=== PATIENT | female | born 1965 | race Caucasian/White ===

== ENCOUNTER 2016-10-25 11:55 | Day surgery (SDC) | payer MEDICAID ==
[2016-10-25] MEDS ORDERED: PROPOFOL 10 MG/ML VIAL IV ONE (14:00)
[2016-10-25] MEDS ORDERED: LIDOCAINE 2% MDV (20MG/ML) 20ML VIAL IV ONE (14:00)
[2016-10-25] MEDS ORDERED: MIDAZOLAM HCL 2MG/2ML VIAL IV ONE (14:00)
--- NOTE | 2016-10-27 12:06 | Operative Note ---
DATE OF SURGERY: 10/25/2016 OPERATION: COLONOSCOPY with cold snare and cold forceps polypectomies. PREOPERATIVE DIAGNOSIS: Screening, average risk, initial screen. POSTOPERATIVE DIAGNOSES: 1. Five sigmoid polyps, status post cold forceps removal. 2. One sigmoid polyp, status post cold snare removal. 3. Transverse polyp, status post cold forceps removal. SPECIMENS: Sigmoid and transverse colon. ESTIMATED BLOOD LOSS: Minimal. PREPARATION QUALITY: Good to excellent. COMPLICATIONS: None apparent. PROCEDURE: After informed consent was obtained from the patient, she was placed in the left lateral decubitus position in the endoscopy suite, sedated and monitored by the department of anesthesia. Once sedated, a digital rectal exam was unremarkable. A well-lubricated [id number] colonoscope was inserted into the rectum and advanced to the cecum. The ileocecal valve, appendiceal orifice, cecal cap, and ascending colon were unremarkable. The transverse colon revealed a diminutive polyp removed with a cold forceps. The remainder of the transverse colon as well as the descending colon were unremarkable. In the sigmoid colon, there were 6 polyps, 3 diminutive, each removed with a cold forceps. Another was approximately 4-5 mm removed with a cold snare. Minimal bleeding was noted at all the sites. The polyps were retrieved without incident. No other abnormalities were noted in the sigmoid colon or the rectum. J-turn views of the anorectum were unremarkable. The endoscope was straightened, the rectal ampulla deflated, and the endoscope was removed. RECOMMENDATIONS: The patient should resume her medications and diet. She will require repeat exam in 3 to 5 to 10 years pending tissue histology. As always, thank you for allowing me to participate in the healthcare of your patients. CC: WAI Ramirez
== END 2016-10-25 14:25 | disposition home or self-care (01) ==
LOC: HOP 11:55
PROVIDERS: ATTEND Internal Medicine Gastroenterology
DX: Z12.11 Encounter for screening for malignant neoplasm of colon (principal); K63.5 Polyp of colon; M06.9 Rheumatoid arthritis, unspecified

== ENCOUNTER 2017-02-03 20:29 | Inpatient (IN) | payer MEDICAID ==
[2017-02-03] MEDS ORDERED: HYOSCYAMINE SULFATE ODT 0.125 MG TAB.SUBL SL ONE (20:47)
[2017-02-03] MEDS ORDERED: ONDANSETRON HCL IV 4 MG/2 ML VIAL IVP ONE ×2 (20:47→22:06)
--- NOTE | 2017-02-03 20:53 | Emergency Department Record ---
History of Present Illness - General Chief Complaint: Fall Injury Stated Complaint: FALL Time Seen by Provider: 02/03/17 20:36 Source: Patient Mode of Arrival: Ambulatory Limitations: No limitations - History of Present Illness Initial Comments: 51 yo female presents to ED with (2) complaints; patient reports abdominal pain and distension since the afternoon, reports that she is feeling "bloated". Patient reports nausea and vomiting, deneis change in stools, fevers, chills, or recent illness. Patient also reports that while bent over the toilet vomiting, she feel backwards striking her head on a door frame. Patient denies LOC, does not take anti-coagulation medications, but reports laceration to the posterior scalp. MD Complaint: Fall Onset/Timin -: Minutes(s) Fall From: Other When Fall Occurred: 1 hour [employer] Fall Witnessed: Yes, by family Place Fall Occurred: Home Loss of Consciousness: None Prolonged Down Time?: No Symptoms Prior to Fall: None Location: Head Severity: Moderate Quality: Aching Associated Symptoms: Abdominal pain - Sam Coma Scale Eye Response: (4) Open spontaneously Motor Response: (6) Obeys commands Verbal Response: (5) Oriented Burgess Total: 15 - Related Data Home Medications Medication Instructions Recorded Confirmed Last Taken Folic Acid 1 mg PO QD tab 07/24/16 02/03/17 Unknown Methotrexate Sodium [Methotrexate] 17.5 mg PO WEEKLY tab 07/24/16 02/03/17 Unknown Prednisone 5 mg PO QD tab 07/24/16 02/03/17 Unknown Adalimumab [Humira Pen] 40 mg SQ Q2WEEK kit 08/27/16 02/03/17 Unknown Alendronate Sodium [Alendronate 70 mg PO ASDIR 02/03/17 02/03/17 Unknown Sodium] Previous Rx's Medication Instructions Recorded Hyoscyamine Sulfate [Levsin-Sl] 0.25 mg SL Q8H PRN #20 tab.subl 02/03/17 Ondansetron HCl [Zofran] 4 mg PO Q6H PRN #20 tablet 02/03/17 Allergies Allergy/AdvReac Type Severity Reaction Status Date / Time No Known Drug Allergies Allergy Unverified 08/27/16 08:48 Review of Systems Constitutional: Denies: Chills, Fever, Malaise, Night sweats Eyes: Denies: Eye discharge, Eye pain ENT: Denies: Congestion, Ear pain, Epistaxis Respiratory: Denies: Cough, Dyspnea Cardiovascular: Denies: Chest pain, Dyspnea on exertion Endocrine: Denies: Fatigue, Heat or cold intolerance Gastrointestinal: Reports: Abdominal pain, Nausea, Vomiting. Denies: Constipation Genitourinary: Denies: Incontinence, Retention Musculoskeletal: Denies: Arthralgia, Back pain, Gout, Joint swelling Skin: Denies: Bruising, Change in color Neurological: Reports: Headache. Denies: Abnormal gait, Confusion, Seizure Psychiatric: Denies: Anxiety Hematological/Lymphatic: Denies: Anemia, Blood Clots Past Medical History - SOCIAL HISTORY Smoking Status: Former smoker - RESPIRATORY Hx Respiratory Disorders: No - CARDIOVASCULAR Hx Cardio Disorders: No - NEURO Hx Neuro Disorders: No - GI Hx GI Disorders: Yes Hx Reflux: Yes - Hx Genitourinary Disorders: No Comment:: LMP two years ago - ENDOCRINE Hx Endocrine Disorders: No - MUSCULOSKELETAL Hx Musculoskeletal Disorders: Yes Hx Arthritis: Yes (R.A.) - PSYCH Hx Psych Problems: No - HEMATOLOGY/ONCOLOGY Hx Hematology/Oncology Disorders: Yes Hx Bruising: Yes (hands) Physical Exam - General General Appearance: Alert, Oriented x3, Cooperative, Mild distress Limitations: No limitations - Head Head exam: Other (2.0 c, linear laceration to the posterior scalp) Head exam detail: Abrasion, Contusion, General tenderness, Laceration. negative : Gallego's sign, Hematoma - Eye Eye exam: Normal appearance. negative: Conjunctival injection, Periorbital swelling, Periorbital tenderness, Scleral icterus - ENT Ear exam: negative: Auricular hematoma, Auricular trauma Nasal Exam: negative: Active bleeding, Discharge, Dried blood, Foreign body Mouth exam: negative: Drooling, Laceration, Muffled voice, Tongue elevation - Neck Neck exam: Normal inspection. negative: Meningismus, Tenderness - Respiratory Respiratory exam: Normal lung sounds bilaterally. negative: Rales, Respiratory distress, Rhonchi, Stridor - Cardiovascular Cardiovascular Exam: Regular rate, Normal rhythm, Normal heart sounds - GI/Abdominal GI/Abdominal exam: Soft, Tenderness, Other (TTP over to the abdomen diffusely, no rebound or guarding present). negative: Rebound, Rigid - Rectal Rectal exam: Deferred - exam: Deferred - Extremities Extremities exam: Normal inspection. negative: Calf tenderness, Pedal edema, Tenderness - Back Back exam: Denies: CVA tenderness (R), CVA tenderness (L) - Neurological Neurological exam: Alert, Normal gait, Oriented X3 - Psychiatric Psychiatric exam: Normal affect, Normal mood - Skin Skin exam: Normal color. negative: Abrasion Type of lesion: negative: abrasion Course - Reevaluation(s) Reevaluation #1: 02/03/17 21:17 Labs reviewed, WBC 13.1, labs are otherwise grossly unremarkable for an acute process. Reevaluation #2: 02/03/17 22:[address] imaging, reports her no improvement in her pain symptoms. Morphine and repeat Zofran ordered for her symptoms. Procedure Note: TLE was applied to the posterior scalp wound, wound was then cleaned, no FBs identified. Wound was then closed with domingo x 4 without complications. Total wound length: 2.0 cm. Reevaluation #3: 02/03/17 22:24 CT Head: No acute traumatic injury CT Abdomen and Pelvis: Distended gallbladder without wall thickening, no biliary duct dilatation, left adrenal adenoma, non-calcified nodules to the lungs recommend CT Chest for further evaluation. Patient was updated on all results, reports that she is much more comfortable following morphine administration. Patient appears stable for discharge at this time with instructions to return in 12 hours for repeat evaluation and possible US of the abdomen to further evaluate the patient's abdominal pain symptoms. Reevaluation #4: 02/03/17 22:42 Patient reassessed, appears to still have significant pain symptoms. Will admit for pain control, US in the morning, and surgical consultation in AM. 02/03/17 22:53 BS US performed, gallstones are present without evidence for wall thickening. Reevaluation #5: 02/03/17 23:03 EKG: NSR 61 Normal axis, IVCD No acute ST-T wave changes Lactic acid and Troponin has resulted and are normal. Will admit at this time. Patient reports that her symptoms are mildly improved following GI cocktail. 02/03/17 23:49 02/04/17 06:50 Case was discussed with Dr. Whiteside, will accept admission Medical Decision Making - Lab Data Result diagrams: 02/03/17 20:54 02/03/17 20:54 Disposition Disposition: Admit Clinical Impression: Abdominal pain Qualifiers: Abdominal location: generalized Qualified Code(s): R10.84 - Generalized abdominal pain Head contusion Qualifiers: Encounter type: initial encounter Contusion of head detail: scalp Qualified Code(s): S00.03XA - Contusion of scalp, initial encounter Scalp laceration Qualifiers: Encounter type: initial encounter Qualified Code(s): S01.01XA - Laceration without foreign body of scalp, initial encounter Nausea & vomiting Qualifiers: Vomiting type: unspecified Vomiting Intractability: non-intractable Qualified Code(s): R11.2 - Nausea with vomiting, unspecified Disposition: Still a Patient at [facility] Decision to Admit: Admit from ER Decision to Admit Date: 02/03/17 Decision to Admit Time: 22:45 Time of Disposition: 23:51 Quality - Quality Measures Quality Measures: N/A - Blood Pressure Screening Blood Pressure Classification: Normal BP Reading Systolic Measurement: 105 Diastolic Measurement: 75 Screening for High Blood Pressure: < Normal BP, F/U Not Required > [[id number]] Normal BP Follow-up Interventions: No follow-up required
[2017-02-03 20:59] LABS: BASO % 0.3 % (0-6); EOS % 0.5 % (0-6); GRAN % 73.4 % (47-80); HEMATOCRIT 38.7 % (35.0-47.0); HEMOGLOBIN 12.4 gm/dl (11.6-16.0); MEAN CELL VOLUME 82.9 fl (81-97); MEAN CORPUSCULAR HEMOGLOBIN 26.6 pg (27-33); MEAN PLATELET VOLUME 9.9 fl (7.4-10.4); MONO % 6.8 % (0-9); PLATELET COUNT 349 K/uL (130-400); RED BLOOD COUNT 4.67 M/uL (3.80-5.40); WHITE BLOOD COUNT W/O DIFF 13.1 K/uL (4.2-12.2)
[2017-02-03] MEDS ORDERED: 0.9 % SODIUM CHLORIDE 1000ML 1,000 ML IV SCH (21:00)
[2017-02-03 21:10] LABS: ALB/GLOB RATIO 1.2 (1.1-1.8); ALBUMIN 4.5 gm/dL (3.5-5.0); ALKALINE PHOSPHATASE 87 U/L (38-126); ALT/SGPT 52 U/L (9-52); ANION GAP 12.1 (7-16); AST/SGOT 32 U/L (14-36); BILIRUBIN,TOTAL 0.67 mg/dL (0.2-1.3); BLOOD UREA NITROGEN 11 mg/dL (7-17); CARBON DIOXIDE 21.9 mmol/L (22-30); CREATININE 0.5 mg/dL (0.52-1.04); EST GLOMERULAR FILTRATION RATE > 60 ml/min; GLUCOSE,RANDOM 147 mg/dL (70-110); LIPASE 104 U/L (23-300); TOTAL PROTEIN 8.4 gm/dL (6.3-8.2)
[2017-02-03] MEDS ORDERED: MORPHINE SULFATE 5 MG/ML PFS IVP ONE (22:03)
[2017-02-03] MEDS ORDERED: HYDROMORPHONE HCL 1MG/ML **SYRINGE IVP ONE (22:54)
[2017-02-03] MEDS ORDERED: MAGNESIUM HYDROXIDE/AL HYDROX 30 ML, LIDOCAINE VISC 2% 200 MG PO ONE ×2 (22:55)
[2017-02-03 23:56] LABS: URINE APPEARANCE CLEAR; URINE BILIRUBIN NEGATIVE (NEGATIVE); URINE COLOR YELLOW; URINE GLUCOSE (UA) NEGATIVE (NEGATIVE); URINE KETONE NEGATIVE (NEGATIVE); URINE LEUKOCYTE ESTERASE NEGATIVE (NEGATIVE); URINE NITRITE NEGATIVE (NEGATIVE); URINE PROTEIN NEGATIVE (NEGATIVE); URINE UROBILINOGEN 0.2 E.U./dL (0.20 - 1.00)
[2017-02-03 23:57] LABS: URINE BLOOD NEGATIVE (NEGATIVE)
[2017-02-04] MEDS ORDERED: Non-Formulary MISC (Alendronate Sodium [Alendronate Sodium] 70 MG) PO SCH (00:32)
[2017-02-04] MEDS ORDERED: 0.9 % SODIUM CHLORIDE 1000ML 1,000 ML IV PRN (00:32)
[2017-02-04] MEDS ORDERED: HYDROMORPHONE HCL 1MG/ML **SYRINGE IM PRN (00:32)
[2017-02-04] MEDS ORDERED: Non-Formulary MISC (Adalimumab [Humira Pen] 40 MG) SQ SCH (00:32)
[2017-02-04] MEDS ORDERED: FOLIC ACID 1 MG TABLET PO SCH (00:32)
[2017-02-04] MEDS ORDERED: PREDNISONE 1 MG TABLET PO SCH (00:32)
[2017-02-04] MEDS: ONDANSETRON HCL IV 4 MG/2 ML VIAL IVP PRN ×2 (03:09→09:34)
[2017-02-04] MEDS: HYDROMORPHONE HCL 1MG/ML **SYRINGE IVP PRN ×2 (03:11→09:34)
--- NOTE | 2017-02-04 07:20 | CT SCAN REPORT ---
EXAM: CT SCAN OF THE BRAIN WITHOUT CONTRAST HISTORY: FELL TWO HOURS AGO. LACERATION TO THE POSTERIOR SCALP. TECHNIQUE: Standard CT imaging of the brain was performed in the axial plane without contrast. Additional coronal and sagittal reformatted images were also performed. Comparison: None. Encounter: Initial. FINDINGS: The ventricles and subarachnoid spaces are normal. There is no mass , mass effect, intracranial hemorrhage, visible acute infarct, or abnormal extraaxial fluid. The skull is intact. The orbits, sinuses, and mastoids are normal. IMPRESSION: NO ACUTE INTRACRANIAL ABNORMALITY OR SKULL FRACTURE. JOB NUMBER: [id number] MTDD
--- NOTE | 2017-02-04 07:29 | CT SCAN REPORT ---
EXAM: CT SCAN OF THE ABDOMEN AND PELVIS WITH CONTRAST HISTORY: RIGHT UPPER QUADRANT ABDOMINAL PAIN WITH BELCHING, NAUSEA, VOMITING FOR THE PAST FOUR TO FIVE HOURS. TECHNIQUE: Standard CT imaging of the abdomen and pelvis was performed with intravenous contrast. 100 ml of Omnipaque 300 were administered. Comparison: None. FINDINGS: There is a 1.8 x 1.7 cm lobulated noncalcified nodule within the left lower lobe just above the hemidiaphragm. A 9 mm nodule is also present within the medial aspect of the left lower lobe. The lung bases are otherwise clear. A tiny hiatal hernia is present. The stomach and epigastrium are otherwise normal. The liver parenchyma appears normal. The gallbladder is mildly distended, but otherwise unremarkable. There are no visible stones, wall thickening, or pericholecystic fluid. There is no biliary ductal dilatation. The pancreas and spleen are normal. There is a low density nodule within the left adrenal gland likely representing an adenoma. This measures 1.4 x 1.2 cm. The right adrenal gland is normal. The kidneys and ureters are unremarkable. There are moderate atherosclerotic changes within the aorta with no aneurysm or dissection. There is no retroperitoneal lymphadenopathy. The large and small bowel loops appear within normal limits. There are no focal inflammatory changes. There is no pneumoperitoneum or ascites. The uterus and adnexa are normal. The urinary bladder is unremarkable. There is a tiny fat containing umbilical hernia. Degenerative changes are present within the spine. There are no acute osseous abnormalities. IMPRESSION: 1. NO ACUTE INTRAABDOMINAL PATHOLOGY. 2. NONCALCIFIED NODULES AT THE LEFT LUNG BASE. THE LARGEST MEASURES 1.[address] SCAN OF THE CHEST IS RECOMMENDED FOR BASELINE ASSESSMENT OF BOTH LUNGS. 3. TINY HIATAL HERNIA. 4. MILDLY DISTENDED GALLBLADDER WITH NO ASSOCIATED INFLAMMATORY CHANGES OR VISIBLE STONES. 5. PROBABLE LEFT ADRENAL ADENOMA MEASURING 1.4 X 1.2 CM. 6. TINY FAT CONTAINING UMBILICAL HERNIA. JOB NUMBER: [id number] [facility]
[2017-02-04] MEDS: FOLIC ACID 1 MG TABLET PO SCH (09:28)
[2017-02-04] MEDS: PREDNISONE 5 MG TAB PO SCH ×2 (09:29→10:55)
--- NOTE | 2017-02-04 10:52 | History & Physical ---
History of Present Illness - Date of Service Date of Service for History & Physical: 02/04/17 - History of Present Illness Admitting Diagnosis: Intractable abdominal pain. Nausea/vomiting. Head injury. Scalp laceration History of Present Illness: 51 yo female presents to ED yesterday with CC 1) patient reports abdominal pain in RUQ, nausea, vomiting, burping since 5pm 2) Fall with laceration to back of head at 7pm + chills, no fevers or diarrhea. Last BM was yesterday morning and soft, brown, and normal per patient. History of acid reflux but no ulcerations. No prior scope. Had taken a large number of NSAIDs up until 2 years ago when started on methotrexate and prednsione for RA. Does not have her appendix but has her gallbladder. Has had 2 vaginal deliveries in past. No history of kidney stones. Currently she is still a little nauseous and still painful despite Dilaudid 1mg q 4. She has had a 50 lb weight gain on prednsione in past year. Patient also reports that while bent over the toilet vomiting, she feel backwards striking her head on a door frame. Patient denies LOC, does not take anti-coagulation medications, but reports laceration to the posterior scalp. Travel Screening - Travel/Exposure Within Last 30 Days Have you traveled within the last 30 days?: No - Travel/Exposure Within Last Year Have you traveled outside the [place] in the last year?: No - Additonal Travel Details Have you been exposed to anyone with a communicable illness?: No - Travel Symptoms Symptom Screening: None Review of Systems Constitutional: Denies: Chills, Fever, Malaise, Night sweats Eyes: Denies: Eye discharge, Eye pain ENT: Denies: Congestion, Ear pain, Epistaxis Respiratory: Denies: Cough, Dyspnea Cardiovascular: Denies: Chest pain, Dyspnea on exertion Endocrine: Denies: Fatigue, Heat or cold intolerance Gastrointestinal: Reports: Abdominal pain, Nausea, Vomiting. Denies: Constipation Genitourinary: Denies: Incontinence, Retention Musculoskeletal: Denies: Arthralgia, Back pain, Gout, Joint swelling Skin: Denies: Bruising, Change in color Neurological: Reports: Headache. Denies: Abnormal gait, Confusion, Seizure Psychiatric: Denies: Anxiety Hematological/Lymphatic: Denies: Anemia, Blood Clots Past Medical History - SOCIAL HISTORY Smoking Status: Former smoker - RESPIRATORY Hx Respiratory Disorders: No - CARDIOVASCULAR Hx Cardio Disorders: No - NEURO Hx Neuro Disorders: No - GI Hx GI Disorders: Yes Hx Reflux: Yes - Hx Genitourinary Disorders: No Comment:: LMP two years ago - ENDOCRINE Hx Endocrine Disorders: No - MUSCULOSKELETAL Hx Musculoskeletal Disorders: Yes Hx Arthritis: Yes (R.A.) - PSYCH Hx Psych Problems: No - HEMATOLOGY/ONCOLOGY Hx Hematology/Oncology Disorders: Yes Hx Bruising: Yes (hands) Family Medical History Any Significant Family History?: No H&P Meds/Allergies - Allergies Allergies: Allergies Allergy/AdvReac Type Severity Reaction Status Date / Time No Known Drug Allergies Allergy Unverified 08/27/16 08:48 - Home Medications Home Medications Medication Instructions Recorded Confirmed Last Taken Folic Acid 1 mg PO QD tab 07/24/16 02/03/17 Unknown Methotrexate Sodium [Methotrexate] 17.5 mg PO WEEKLY tab 07/24/16 02/03/17 Unknown Prednisone 5 mg PO QD tab 07/24/16 02/03/17 Unknown Adalimumab [Humira Pen] 40 mg SQ Q2WEEK kit 08/27/16 02/03/17 Unknown Alendronate Sodium [Alendronate 70 mg PO ASDIR 02/03/17 02/03/17 Unknown Sodium] Previous Rx's Medication Instructions Recorded Hyoscyamine Sulfate [Levsin-Sl] 0.25 mg SL Q8H PRN #20 tab.subl 02/03/17 Ondansetron HCl [Zofran] 4 mg PO Q6H PRN #20 tablet 02/03/17 - Active Medications Active Medications: Current Medications Folic Acid () 1 mg PO DAILY JESSEE Last Admin: 02/04/17 09:28 Dose: 1 mg Hydromorphone HCl (Dilaudid) 1 mg IVP Q4HR PRN PRN Reason: Abdominal Pain Last Admin: 02/04/17 09:34 Dose: 1 mg Sodium Chloride () 1,000 mls @ 100 mls/hr IV .Q10H PRN PRN Reason: LARGE VOLUME IV Non-Formulary Medication (Adalimumab [Humira Pen]) 40 mg SQ Q2WEEK JESSEE Non-Formulary Medication (Alendronate Sodium [Alendronate Sodium]) 70 mg PO ASDIR JESSEE Ondansetron HCl (Zofran) 4 mg IVP Q4H PRN PRN Reason: NAUSEA Last Admin: 02/04/17 09:34 Dose: 4 mg Prednisone (Prednisone 5mg) 5 mg PO DAILY JESSEE Last Admin: 02/04/17 09:29 Dose: 5 mg Physical Exam - Vital Signs Vital Signs: Vital Signs - Last 24 Hrs Temp Pulse Resp BP Pulse Ox 02/04/17 08:40 72 16 02/04/17 08:32 98.9 F 16 142/79 02/04/17 00:55 61 18 02/04/17 00:32 98.1 F 61 18 149/95 96 - General General Appearance: Alert, Oriented x3, Cooperative, Mild distress Limitations: No limitations - Head Head exam: Other (2.0 c, linear laceration to the posterior scalp) Head exam detail: Abrasion, Contusion, General tenderness, Laceration. negative : Gallego's sign, Hematoma - Eye Eye exam: Normal appearance. negative: Conjunctival injection, Periorbital swelling, Periorbital tenderness, Scleral icterus - ENT Ear exam: negative: Auricular hematoma, Auricular trauma Nasal Exam: negative: Active bleeding, Discharge, Dried blood, Foreign body Mouth exam: negative: Drooling, Laceration, Muffled voice, Tongue elevation - Neck Neck exam: Normal inspection. negative: Meningismus, Tenderness - Respiratory Respiratory exam: Normal lung sounds bilaterally. negative: Rales, Respiratory distress, Rhonchi, Stridor - Cardiovascular Cardiovascular Exam: Regular rate, Normal rhythm, Normal heart sounds - GI/Abdominal GI/Abdominal exam: Soft, Tenderness (RUQ mostly, little in RLQ, no tenderness in left side), Other (TTP over to the abdomen diffusely, no rebound or guarding present). negative: Rebound, Rigid - Rectal Rectal exam: Deferred - exam: Deferred - Extremities Extremities exam: Normal inspection. negative: Calf tenderness, Pedal edema, Tenderness - Back Back exam: Denies: CVA tenderness (R), CVA tenderness (L) - Neurological Neurological exam: Alert, Normal gait, Oriented X3 - Psychiatric Psychiatric exam: Normal affect, Normal mood - Skin Skin exam: Normal color. negative: Abrasion Type of lesion: negative: abrasion Results - Labs Result Diagrams: 02/03/17 20:54 02/03/17 20:54 VTE H&P Assessment - Risk for VTE Risk for VTE: Yes Risk Level: Low Risk Assessment Date: 02/04/17 Risk Assessment Time: 11:44 VTE Orders Placed or Will Be Placed: No VTE Reason for No Prophylaxis: Not Indicated Plan - Detailed Diagnosis and Plan (1) Abdominal pain Current Visit: Yes Status: Acute Qualifiers: Abdominal location: right upper quadrant Qualified Code(s): R10.11 - Right upper quadrant pain Base Code: R10.9 - UNSPECIFIED ABDOMINAL PAIN Comment: 02/04- CT and ultrasound not positive for anything significant except distention of the gallbladder. Dr. Nichols consulted by ED and placed order for HIDA scan. Plan to get scan tomorrow. If negative, will need to set up for scope as outpatient on Saturday (2) Head contusion Current Visit: Yes Status: Acute Qualifiers: Encounter type: initial encounter Contusion of head detail: scalp Qualified Code(s): S00.03XA - Contusion of scalp, initial encounter Base Code: S00.93XA - CONTUSION OF UNSPECIFIED PART OF HEAD, INITIAL ENCOUNTER Priority: Low Comment: 02/04- domingo in place for head bumping on door s/p vomitting attack (3) Nausea & vomiting Current Visit: Yes Status: Acute Qualifiers: Vomiting type: unspecified Vomiting Intractability: non-intractable Qualified Code(s): R11.2 - Nausea with vomiting, unspecified Base Code: R11.2 - NAUSEA WITH VOMITING, UNSPECIFIED Priority: Medium Comment: 02/04- improved some, will try to medically reduce symptoms (4) Scalp laceration Current Visit: Yes Status: Acute Qualifiers: Encounter type: initial encounter Qualified Code(s): S01.01XA - Laceration without foreign body of scalp, initial encounter Base Code: S01.01XA - LACERATION WITHOUT FOREIGN BODY OF SCALP, INITIAL ENCOUNTER Comment: 02/04- domingo in place, C/D/I
[2017-02-04 12:47] LABS: BASO % 0.3 % (0-6); EOS % 0.5 % (0-6); GRAN % 70.8 % (47-80); HEMATOCRIT 37.4 % (35.0-47.0); HEMOGLOBIN 12.2 gm/dl (11.6-16.0); MEAN CORPUSCULAR HEMOGLOBIN 27.4 pg (27-33); MEAN CORPUSCULAR HGB CONC 32.6 g/dl (32-36); MEAN PLATELET VOLUME 10.2 fl (7.4-10.4); MONO % 10.4 % (0-9); PLATELET COUNT 326 K/uL (130-400); RED BLOOD COUNT 4.45 M/uL (3.80-5.40); RED CELL DISTRIBUTION WIDTH 15.1 % (11.5-14.5); WHITE BLOOD COUNT W/O DIFF 13.6 K/uL (4.2-12.2)
[2017-02-04 13:11] LABS: ALB/GLOB RATIO 1.2 (1.1-1.8); ALBUMIN 4.1 gm/dL (3.5-5.0); ALKALINE PHOSPHATASE 84 U/L (38-126); ALT/SGPT 53 U/L (9-52); ANION GAP 10.1 (7-16); AST/SGOT 23 U/L (14-36); BILIRUBIN,TOTAL 1.03 mg/dL (0.2-1.3); BLOOD UREA NITROGEN 7 mg/dL (7-17); CARBON DIOXIDE 25.9 mmol/L (22-30); CREATININE 0.5 mg/dL (0.52-1.04); EST GLOMERULAR FILTRATION RATE > 60 ml/min; GLUCOSE,RANDOM 107 mg/dL (70-110); TOTAL PROTEIN 7.6 gm/dL (6.3-8.2)
[2017-02-04 14:14] LABS: LDL CHOLESTEROL/MEASURED 107.7 mg/dL (0-100)
[2017-02-04] MEDS: HYDROCODONE/APAP 10/325 TABLET PO PRN ×2 (15:59→23:47)
[2017-02-04] MEDS ORDERED: DOCUSATE SODIUM 100 MG CAPSULE PO PRN (22:19)
[2017-02-05 06:34] LABS: BASO % 0.2 % (0-6); EOS % 0.4 % (0-6); GRAN % 72.8 % (47-80); HEMATOCRIT 38.4 % (35.0-47.0); HEMOGLOBIN 12.1 gm/dl (11.6-16.0); LYMPH % 14.1 % (16-45); MEAN CELL VOLUME 84.8 fl (81-97); MEAN CORPUSCULAR HEMOGLOBIN 26.7 pg (27-33); MEAN CORPUSCULAR HGB CONC 31.5 g/dl (32-36); MEAN PLATELET VOLUME 10.2 fl (7.4-10.4); MONO % 12.5 % (0-9); PLATELET COUNT 292 K/uL (130-400); RED BLOOD COUNT 4.53 M/uL (3.80-5.40); RED CELL DISTRIBUTION WIDTH 15.4 % (11.5-14.5); WHITE BLOOD COUNT W/O DIFF 19.6 K/uL (4.2-12.2)
[2017-02-05 06:46] LABS: ALBUMIN 3.8 gm/dL (3.5-5.0); ALKALINE PHOSPHATASE 82 U/L (38-126); ALT/SGPT 45 U/L (9-52); ANION GAP 7.7 (7-16); AST/SGOT 23 U/L (14-36); BILIRUBIN,TOTAL 1.39 mg/dL (0.2-1.3); BLOOD UREA NITROGEN 6 mg/dL (7-17); CARBON DIOXIDE 25.3 mmol/L (22-30); CREATININE 0.6 mg/dL (0.52-1.04); EST GLOMERULAR FILTRATION RATE > 60 ml/min; GLUCOSE,RANDOM 106 mg/dL (70-110); TOTAL PROTEIN 7.5 gm/dL (6.3-8.2)
[2017-02-05 06:58] LABS: C-REACTIVE PROTEIN 18.7 mg/dL (0.0-0.9)
--- NOTE | 2017-02-05 07:32 | ULTRASOUND REPORT ---
EXAM: ABDOMEN ULTRASOUND HISTORY: ACUTE RIGHT UPPER QUADRANT ABDOMINAL PAIN. TECHNIQUE: Real-time babin scale sonographic imaging of the abdomen was performed. Comparison: Abdomen CT 02/03/17. FINDINGS: The liver and spleen are not enlarged and appear homogeneous. No biliary dilatation. The common duct measures 3 mm in diameter, within normal limits. Numerous shadowing gallstones in the gallbladder which is not distended. No gallbladder wall thickening or pericholecystic fluid. Sonographic Regalado's sign is negative. The kidneys are normal without mass, calculi, or hydronephrosis. The right kidney measures 11.1 x 4.7 x 4.7 cm and the left kidney measures 11.7 x 4.9 x 5.7 cm. The tail of the pancreas is not seen due to bowel gas although the remaining pancreas, abdominal aorta and IVC are unremarkable. IMPRESSION: CHOLELITHIASIS WITHOUT SONOGRAPHIC EVIDENCE OF ACUTE CHOLECYSTITIS. JOB NUMBER: [id number] MTDD
--- NOTE | 2017-02-05 11:00 | Medical Records Consult ---
DATE OF CONSULTATION: 02/04/2017 REASON FOR CONSULTATION: Abdominal pain. INDICATIONS: The patient is a 51-year-old male who presented to the Emergency Department last night with abdominal pain. She stated she felt a bit distended and bloated, and had some nausea and vomiting. Overall today, she states she feels about the same, maybe slightly better, but wants to eat. While vomiting last night, patient did fall over and struck the back of her head requiring repair of a laceration. PAST MEDICAL HISTORY: Crohn's disease. PAST SURGICAL HISTORY: Open appendectomy. CURRENT MEDICATIONS: Include folic acid, methotrexate, prednisone, Humira. She also takes hyoscyamine and Zofran. ALLERGIES: She has no known medical allergies. SOCIAL HISTORY: She denies any tobacco or alcohol usage, although she used to smoke in the past. PHYSICAL EXAMINATION: Her vital signs are stable. She is afebrile. Her heart has a regular rate and rhythm. Lungs are clear. Abdomen is soft, obese. There is minimal tenderness in the right upper quadrant to deep palpation. LABORATORY: Laboratory values did reveal a white count of 13,000. Hemoglobin 12.4. Hematocrit 38.7. Platelet count of 349. Her chemistries were all essentially normal. Liver functions and bilirubin were normal. CT scan did show a distended gallbladder, but no obvious pericholecystic fluid. There was no gallbladder wall thickening. There were no gallstones noted. Ultrasound this morning was done, which did reveal no evidence of any cholelithiasis. There was no thickening. No distention. No gallstones. IMPRESSION: Abdominal pain, unknown clear etiology. At this point, would recommend checking a HIDA scan with [facility]. If this is normal, she might benefit from upper endoscopy. We will follow up after her HIDA. Thank you for this referral. VENKATA
[2017-02-05] MEDS ORDERED: MORPHINE SULFATE 5 MG/ML PFS IVP ONE (11:56)
[2017-02-05] MEDS: FOLIC ACID 1 MG TABLET PO SCH (12:58)
[2017-02-05] MEDS: PREDNISONE 5 MG TAB PO SCH (12:58)
--- NOTE | 2017-02-05 13:08 | Discharge Summary ---
Providers Discharge Summary Date: 02/05/17 Date of admission: 02/04/17 00:12 Expected Date of Discharge: 02/05/17 Attending physician: MARCUS JOY Primary care physician: RAMONA SKINNER Physical Exam - Vital Signs Vital Signs: Vital Signs - Last 24 Hrs Temp Pulse Resp BP Pulse Ox 02/05/17 07:52 81 14 121/67 96 02/05/17 00:00 99.1 F 84 18 134/74 96 02/04/17 21:00 79 16 02/04/17 16:00 79 18 139/91 98 - General General Appearance: Alert, Oriented x3, Cooperative, No acute distress Limitations: No limitations - Head Head exam: Other Head exam detail: Abrasion, Contusion, General tenderness, Laceration. negative : Gallego's sign, Hematoma - Eye Eye exam: Normal appearance. negative: Conjunctival injection, Periorbital swelling, Periorbital tenderness, Scleral icterus - ENT Ear exam: negative: Auricular hematoma, Auricular trauma Nasal Exam: negative: Active bleeding, Discharge, Dried blood, Foreign body Mouth exam: negative: Drooling, Laceration, Muffled voice, Tongue elevation - Neck Neck exam: Normal inspection. negative: Meningismus, Tenderness - Respiratory Respiratory exam: Normal lung sounds bilaterally. negative: Rales, Respiratory distress, Rhonchi, Stridor - Cardiovascular Cardiovascular Exam: Regular rate, Normal rhythm, Normal heart sounds - GI/Abdominal GI/Abdominal exam: Soft, Tenderness (RUQ mostly, little in RLQ, no tenderness in left side), Other (TTP over to the abdomen diffusely, no rebound or guarding present). negative: Rebound, Rigid - Rectal Rectal exam: Deferred - exam: Deferred - Extremities Extremities exam: Normal inspection. negative: Calf tenderness, Pedal edema, Tenderness - Back Back exam: Denies: CVA tenderness (R), CVA tenderness (L) - Neurological Neurological exam: Alert, Normal gait, Oriented X3 - Psychiatric Psychiatric exam: Normal affect, Normal mood - Skin Skin exam: Normal color. negative: Abrasion Type of lesion: negative: abrasion Hospitalization - Hospitalization Admission Diagnosis: Intractable abdominal pain. Nausea/vomiting. Head injury. Scalp laceration - Problem List/Discharge Diagnosis (1) Abdominal pain Current Visit: Yes Status: Acute Discharge Diagnosis: Abdominal location: right upper quadrant Qualified Code(s): R10.11 - Right upper quadrant pain Base Code: R10.9 - UNSPECIFIED ABDOMINAL PAIN Comment: 02/05- CTA: distended GB. ultrasound: cholelithiasis. No filling of GB per HIDA. WBC 19.6, CRP 18. Bili 1.39. AST/ALT negative. Afebrile. Will obtain direct bili. Case discussed with Dr. Nichols, will transfer to [facility] for further medical management. Will keep patient NPO in the meantime. (2) Head contusion Current Visit: Yes Status: Acute Discharge Diagnosis: Encounter type: initial encounter Contusion of head detail: scalp Qualified Code(s): S00.03XA - Contusion of scalp, initial encounter Base Code: S00.93XA - CONTUSION OF UNSPECIFIED PART OF HEAD, INITIAL ENCOUNTER Comment: 02/05- head CT negative 02/03. domingo in place for head bumping on door s/p vomitting attack (3) Full code status Current Visit: Yes Status: Acute Base Code: Z78.9 - OTHER SPECIFIED HEALTH STATUS Comment: 02/05- full code - Hospitalization Course Disposition: Acute Care Hospital Transfer Hospital Course: 51 yo female presents to ED yesterday with CC 1) patient reports abdominal pain in RUQ, nausea, vomiting, burping since 5pm 2) Fall with laceration to back of head at 7pm + chills, no fevers or diarrhea. Last BM was yesterday morning and soft, brown, and normal per patient. History of acid reflux but no ulcerations. No prior scope. Had taken a large number of NSAIDs up until 2 years ago when started on methotrexate and prednsione for RA. Does not have her appendix but has her gallbladder. Has had 2 vaginal deliveries in past. No history of kidney stones. Currently she is still a little nauseous and still painful despite Dilaudid 1mg q 4. She has had a 50 lb weight gain on prednsione in past year. Patient also reports that while bent over the toilet vomiting, she feel backwards striking her head on a door frame. Patient denies LOC, does not take anti-coagulation medications, but reports laceration to the posterior scalp. 02/05/17: patient lying comfortably in bed with family at bedside. abdominal pain continues though improved with 3 mg of Morphine during HIDA scan this am. She's kept NPO noting need for further imaging. denies n/v/fever/chills. Procedures: Imaging and X-Rays 02/05/17 10:39 Hepatobiliary Scan w Function [NM] Stat Abnormal Labs: Abnormal Lab Results 02/04/17 02/04/17 02/04/17 Range/Units 12:20 12:20 12:20 WBC 13.6 H (4.2-12.2) K/uL MCH (27-33) pg MCHC (32-36) g/dl RDW 15.1 H (11.5-14.5) % Lymphocytes % (16-45) % Monocytes % 10.4 H (0-9) % BUN (7-17) mg/dL Creatinine 0.5 L (0.52-1.04) mg/dL Calcium (8.5-10.1) mg/dL Total Bilirubin (0.2-1.3) mg/dL ALT 53 H (9-52) U/L C-Reactive Protein 3.3 H (0.0-0.9) mg/dL Albumin/Globulin Ratio (1.1-1.8) LDL Cholesterol Measurd (0-100) mg/dL 02/04/17 02/05/17 02/05/17 Range/Units 12:20 06:24 06:24 WBC 19.6 H (4.2-12.2) K/uL MCH 26.7 L (27-33) pg MCHC 31.5 L (32-36) g/dl RDW 15.4 H (11.5-14.5) % Lymphocytes % 14.1 L (16-45) % Monocytes % 12.5 H (0-9) % BUN 6 L (7-17) mg/dL Creatinine (0.52-1.04) mg/dL Calcium 8.3 L (8.5-10.1) mg/dL Total Bilirubin 1.39 H (0.2-1.3) mg/dL ALT (9-52) U/L C-Reactive Protein 18.7 H (0.0-0.9) mg/dL Albumin/Globulin Ratio 1.0 L (1.1-1.8) LDL Cholesterol Measurd 107.7 H (0-100) mg/dL Condition at Discharge: (2) Stable Discharge Medications - Discharge Medications Prescriptions: Hyoscyamine Sulfate [Levsin-Sl] 0.25 mg SL Q8H PRN #20 tab.subl PRN Reason: Abdominal Pain Ondansetron HCl [Zofran] 4 mg PO Q6H PRN #20 tablet PRN Reason: Nausea/Vomiting Home Medications: Ambulatory Orders Folic Acid 1 mg PO QD tab 07/24/16 [Last Taken Unknown] Methotrexate Sodium [Methotrexate] 17.5 mg PO WEEKLY tab 07/24/16 [Last Taken Unknown] Prednisone 5 mg PO QD tab 07/24/16 [Last Taken Unknown] Adalimumab [Humira Pen] 40 mg SQ Q2WEEK kit 08/27/16 [Last Taken Unknown] Alendronate Sodium 70 mg PO ASDIR 02/03/17 [Last Taken Unknown] Hyoscyamine Sulfate [Levsin-Sl] 0.25 mg SL Q8H PRN #20 tab.subl 02/03/17 [Last Taken Unknown] Ondansetron HCl [Zofran] 4 mg PO Q6H PRN #20 tablet 02/03/17 [Last Taken Unknown ] Discharge Plan - Discharge Instructions Activity at Discharge: Other (per MGL recommendations) Diet at Discharge: Other (npo)
--- NOTE | 2017-02-05 14:25 | NUCLEAR MEDICINE REPORT ---
EXAM: NUCLEAR MEDICINE HEPATOBILIARY SCAN HISTORY: TWO DAYS RIGHT UPPER QUADRANT ABDOMINAL PAIN, NAUSEA AND VOMITING AFTER MEALS. TECHNIQUE: After the uneventful intravenous administration of 5.8 micrograms of Technetium 99M mebrofenin and 3.2 milligrams of IV Morphine at 12:05 hours imaging of the abdomen was performed. Comparison: Abdomen and pelvis CT 02/03/17. Abdomen ultrasound 02/04/17. FINDINGS: Prompt radiotracer uptake through the liver. The intra and extrahepatic biliary tree are identified at 10 minutes. Normal biliary to bowel transit. The gallbladder was never visualized despite Morphine augmentation. Imaging was carried out for one hour and forty minutes as well as thirty minutes post Morphine augmentation. IMPRESSION: 1. NONVISUALIZATION OF THE GALLBLADDER WHICH COULD RELATE TO ACUTE CHOLECYSTITIS OR PROLONGED FASTING. 2. NORMAL BILIARY TO BOWEL TRANSIT. JOB NUMBER: [id number] MTDD
== END 2017-02-05 14:35 | disposition short-term general hospital (02) | DRG 446 ==
LOC: ER 20:29 → MEDSURG 02-04 00:12 → OBSVTOIN 02-04 00:12
PROVIDERS: ADMIT Family Medicine; ATTEND Family Medicine
PROC: 0HQ0XZZ Repair Scalp Skin, External Approach (ICD-10-PCS; principal; 2017-02-04)
DX: K80.20 Calculus of gallbladder without cholecystitis without obstruction (principal); R11.2 Nausea with vomiting, unspecified; S01.01XA Laceration without foreign body of scalp, initial encounter; W18.30XA Fall on same level, unspecified, initial encounter; M06.9 Rheumatoid arthritis, unspecified
CPT/HCPCS: 12001; 70450; 74177; 76700; 78226; 80053; 80061; 81003; 82248; 83036; 83605; 83690; 84484; 85025; 86140; 93005; 93010; 96361; 96374; 96375; 96376; 99223; 99239; 99285; J1170; J2405; J7030; J7512